=== PATIENT | female | born 1965 | race Two or more races ===

== ENCOUNTER 2016-12-26 12:52 | Emergency (ER) | payer OTHER ==
[~2016-12-26 12:52] MED LIST: FERRATE325 MG PO; LEVOTHYROXIN0.075 MG PO
[2016-12-26 16:15] VITALS: BP 152/78
[2016-12-26 16:19] LABS: UA SPECIFIC GRAVITY 1.025 (1.005-1.035); microscopic required? YES; urine erythrocyte 3+ (NEGATIVE)
== END 2016-12-26 16:16 | disposition home or self-care (01) ==
LOC: ED 12:52
PROVIDERS: Emergency Medicine
DX: N39.0 Urinary tract infection, site not specified (principal); R03.0 Elevated blood-pressure reading, without diagnosis of hypertension

== ENCOUNTER 2017-02-15 21:15 | Emergency (ER) | payer OTHER ==
[2017-02-15 23:20] VITALS: BP 156/74
== END 2017-02-15 23:20 | disposition home or self-care (01) ==
LOC: ED 21:15
DX: I83.91 Asymptomatic varicose veins of right lower extremity (principal); E07.9 Disorder of thyroid, unspecified

== ENCOUNTER 2017-04-17 20:29 | Emergency (ER) | payer OTHER ==
[2017-04-17 23:32] LABS: UA SPECIFIC GRAVITY <=1.005 (1.005-1.035); microscopic required? YES; urine erythrocyte NEGATIVE (NEGATIVE)
[2017-04-18 00:04] VITALS: BP 131/68
== END 2017-04-18 00:04 | disposition home or self-care (01) ==
LOC: ED 20:29
PROVIDERS: Emergency Medicine Emergency Medical Services
DX: N39.0 Urinary tract infection, site not specified (principal); Z79.899 Other long term (current) drug therapy

== ENCOUNTER 2017-09-02 14:32 | Emergency (ER) | payer OTHER ==
[~2017-09-02] VITALS: Ht 157.5 cm; Wt 88.5 kg
[2017-09-02 16:31] VITALS: BP 142/79
[2017-09-02 16:59] LABS: BASOPHIL % 0.4 % (0-2); PLATELET COUNT 240 x10^3mcL (130-400); RED CELL DISTRIBUTION WIDTH 13.7 % (11.5-14.5)
== END 2017-09-02 17:20 | disposition home or self-care (01) ==
LOC: ED 14:32
PROVIDERS: Emergency Medicine
DX: R04.0 Epistaxis (principal); E07.9 Disorder of thyroid, unspecified
CPT/HCPCS: 36415

== ENCOUNTER 2017-09-03 00:21 | Emergency (ER) | payer OTHER ==
[~2017-09-03] VITALS: Ht 162.6 cm; Wt 81.2 kg
[2017-09-03 01:45] VITALS: BP 140/89
== END 2017-09-03 01:46 | disposition home or self-care (01) ==
LOC: ED 00:21
DX: R04.0 Epistaxis (principal)

== ENCOUNTER 2017-09-06 12:46 | Emergency (ER) | payer OTHER ==
[~2017-09-06] VITALS: Ht 162.6 cm; Wt 87.5 kg
[2017-09-06 14:46] VITALS: BP 136/84
== END 2017-09-06 14:46 | disposition home or self-care (01) ==
LOC: ED 12:46
DX: R04.0 Epistaxis (principal)

== ENCOUNTER 2017-09-10 14:50 | Emergency (ER) | payer OTHER ==
[2017-09-10 16:51] VITALS: BP 117/73
== END 2017-09-10 16:51 | disposition home or self-care (01) ==
LOC: ED 14:50
DX: R04.0 Epistaxis (principal)

== ENCOUNTER 2017-12-11 18:46 | Emergency (ER) | payer OTHER ==
[~2017-12-11] VITALS: Ht 162.6 cm; Wt 87.5 kg
[2017-12-11 19:07] VITALS: Ht 162.6 cm; Wt 87.5 kg
[2017-12-11 21:53] VITALS: BP 142/96
== END 2017-12-12 00:29 | disposition home or self-care (01) ==
LOC: ED 18:46
DX: K21.9 Gastro-esophageal reflux disease without esophagitis (principal); E03.9 Hypothyroidism, unspecified; Z86.2 Personal history of diseases of the blood and blood-forming organs and certain disorders involving the immune mechanism
CPT/HCPCS: J0780; J1885

== ENCOUNTER 2018-01-05 11:27 | Emergency (ER) | payer OTHER ==
[~2018-01-05] VITALS: Ht 162.6 cm; Wt 89.8 kg
[2018-01-05 11:49] VITALS: Ht 162.6 cm; Wt 89.8 kg
[2018-01-05 14:31] VITALS: BP 143/77
== END 2018-01-05 15:15 | disposition home or self-care (01) ==
LOC: ED 11:27
DX: R04.0 Epistaxis (principal)

== ENCOUNTER 2018-03-23 17:59 | Emergency (ER) | payer OTHER ==
[~2018-03-23] VITALS: Ht 170.2 cm; Wt 88.9 kg
[2018-03-23 18:10] VITALS: Ht 170.2 cm; Wt 88.9 kg
[2018-03-23 19:47] VITALS: BP 145/89
== END 2018-03-23 19:47 | disposition home or self-care (01) ==
LOC: ED 17:59
DX: M79.631 Pain in right forearm (principal); X58.XXXA Exposure to other specified factors, initial encounter; Y93.89 Activity, other specified; Y92.89 Other specified places as the place of occurrence of the external cause; Y99.8 Other external cause status
CPT/HCPCS: J1885

== ENCOUNTER 2018-04-14 19:46 | Emergency (ER) | payer OTHER ==
[2018-04-14 21:17] VITALS: BP 148/66
== END 2018-04-14 21:17 | disposition home or self-care (01) ==
LOC: ED 19:46
PROC: 3E023NZ Introduction of Analgesics, Hypnotics, Sedatives into Muscle, Percutaneous Approach (ICD-10-PCS; principal; 2018-04-14)
DX: S46.812A Strain of other muscles, fascia and tendons at shoulder and upper arm level, left arm, initial encounter (principal); E03.9 Hypothyroidism, unspecified; D64.9 Anemia, unspecified; X50.0XXA Overexertion from strenuous movement or load, initial encounter; X50.3XXA Overexertion from repetitive movements, initial encounter; Y92.89 Other specified places as the place of occurrence of the external cause
CPT/HCPCS: J1885; Q0092

== ENCOUNTER 2018-09-06 22:37 | Emergency (ER) | payer OTHER ==
[~2018-09-06] VITALS: Ht 162.6 cm; Wt 72.6 kg
[2018-09-06 23:29] LABS: BASOPHIL % 0.2 % (0-2); PLATELET COUNT 242 x10^3mcL (130-400); RED CELL DISTRIBUTION WIDTH 13.9 % (11.5-14.5)
[2018-09-06 23:32] LABS: UA SPECIFIC GRAVITY <=1.005 (1.005-1.035); microscopic required? YES; urine erythrocyte NEGATIVE (NEGATIVE)
[2018-09-06 23:36] LABS: CALCIUM 9.1 mg/dL (8.5-10.1); CARBON DIOXIDE 27.9 mmol/L (21-32); CHLORIDE SERUM 106 mmol/L (98-107); CREATININE SERUM 0.7 mg/dL (0.6-1.0); GFR1 > 60 mL/min; GLUCOSE SERUM 88 mg/dL (74-106); POTASSIUM SERUM 4.3 mmol/L (3.5-5.1); SODIUM SERUM 141 mmol/L (136-145)
[2018-09-06 23:43] LABS: AMPHETAMINE QUAL UR NONE DETECTED (See below)
[2018-09-06 23:46] LABS: ALBUMIN 3.6 g/dL (3.4-5.0); ALKALINE PHOSPHATASE 85 U/L (46-116); ALT/SGPT 27 U/L (14-59); AST/SGOT 24 U/L (15-37); BILIRUBIN TOTAL 0.2 mg/dL (0.20-1.00); FREE T4 1.07 ng/dL (0.76-1.46); TOTAL PROTEIN, SERUM 7.1 g/dL (6.4-8.2)
[2018-09-07 01:46] VITALS: BP 136/93
== END 2018-09-07 01:46 | disposition home or self-care (01) ==
LOC: ED 22:37
PROVIDERS: Emergency Medicine
DX: N39.0 Urinary tract infection, site not specified (principal); E03.9 Hypothyroidism, unspecified; Z86.2 Personal history of diseases of the blood and blood-forming organs and certain disorders involving the immune mechanism
CPT/HCPCS: 36415; 83880; 84439; J8597

== ENCOUNTER 2018-10-29 21:14 | Emergency (ER) | payer OTHER ==
[~2018-10-29] VITALS: Ht 167.6 cm; Wt 106.1 kg
[2018-10-29 21:35] VITALS: Ht 167.6 cm; Wt 106.1 kg
[2018-10-29 23:20] LABS: CARBON DIOXIDE 24.4 mmol/L (21-32); CHLORIDE SERUM 105 mmol/L (98-107); CREATININE SERUM 0.8 mg/dL (0.6-1.0); GFR1 > 60 mL/min; GLUCOSE SERUM 108 mg/dL (74-106); POTASSIUM SERUM 3.6 mmol/L (3.5-5.1); SODIUM SERUM 140 mmol/L (136-145)
[2018-10-29 23:25] LABS: BASOPHIL % 0.4 % (0-2); PLATELET COUNT 248 x10^3mcL (130-400); RED CELL DISTRIBUTION WIDTH 13.8 % (11.5-14.5)
[2018-10-30 00:29] VITALS: BP 134/84
== END 2018-10-30 00:29 | disposition home or self-care (01) ==
LOC: ED 21:14
PROVIDERS: Emergency Medicine
DX: R04.0 Epistaxis (principal); E03.9 Hypothyroidism, unspecified; Z86.2 Personal history of diseases of the blood and blood-forming organs and certain disorders involving the immune mechanism
CPT/HCPCS: 36415

== ENCOUNTER 2019-02-24 16:59 | Emergency (ER) | payer OTHER ==
[~2019-02-24] VITALS: Ht 165.1 cm; Wt 72.6 kg
[2019-02-24 17:02] VITALS: Ht 165.1 cm; Wt 72.6 kg
[2019-02-24 17:51] LABS: BASOPHIL % 1.9 % (0-2); PLATELET COUNT 252 x10^3mcL (130-400)
[2019-02-24 17:57] LABS: CALCIUM 9.1 mg/dL (8.5-10.1); CARBON DIOXIDE 30.6 mmol/L (21-32); CHLORIDE SERUM 107 mmol/L (98-107); CREATININE SERUM 0.7 mg/dL (0.6-1.0); GFR1 > 60 mL/min; GLUCOSE SERUM 100 mg/dL (74-106); POTASSIUM SERUM 3.9 mmol/L (3.5-5.1); SODIUM SERUM 145 mmol/L (136-145)
[2019-02-24 18:02] LABS: ALBUMIN 3.5 g/dL (3.4-5.0); ALKALINE PHOSPHATASE 84 U/L (46-116); ALT/SGPT 24 U/L (14-59); AST/SGOT 20 U/L (15-37); BILIRUBIN TOTAL 0.2 mg/dL (0.20-1.00); LIPASE 162 IU/L (73-393); TOTAL PROTEIN, SERUM 7.3 g/dL (6.4-8.2)
[2019-02-24 20:38] LABS: microscopic required? YES; urine erythrocyte TRACE (NEGATIVE)
[2019-02-24 21:32] VITALS: BP 117/53
== END 2019-02-24 21:19 | disposition home or self-care (01) ==
LOC: ED 16:59
PROVIDERS: Emergency Medicine
DX: R10.13 Epigastric pain (principal); K76.0 Fatty (change of) liver, not elsewhere classified; E03.9 Hypothyroidism, unspecified; Z86.2 Personal history of diseases of the blood and blood-forming organs and certain disorders involving the immune mechanism
CPT/HCPCS: 36415; Q0092

== ENCOUNTER 2019-12-22 08:07 | Emergency (ER) | payer OTHER ==
[~2019-12-22] VITALS: Ht 167.6 cm; Wt 81.2 kg
[2019-12-22 08:15] VITALS: Ht 167.6 cm; Wt 81.2 kg
[2019-12-22 09:48] VITALS: BP 152/84
== END 2019-12-22 09:48 | disposition home or self-care (01) ==
LOC: ED 08:07
DX: R04.0 Epistaxis (principal); I10 Essential (primary) hypertension; E03.9 Hypothyroidism, unspecified

== ENCOUNTER 2020-02-22 13:07 | Emergency (ER) | payer OTHER ==
[~2020-02-22] VITALS: Ht 165.1 cm; Wt 90.3 kg
[2020-02-22 13:19] VITALS: Ht 165.1 cm; Wt 90.3 kg
[2020-02-22 14:34] VITALS: BP 139/90
== END 2020-02-22 14:34 | disposition home or self-care (01) ==
LOC: ED 13:07
DX: M25.511 Pain in right shoulder (principal); E03.9 Hypothyroidism, unspecified
CPT/HCPCS: J1885

== ENCOUNTER 2020-06-28 10:46 | Emergency (ER) | payer OTHER, SELFPAY ==
[~2020-06-28] VITALS: Ht 162.6 cm; Wt 89.8 kg
[2020-06-28 10:48] VITALS: Ht 162.6 cm; Wt 89.8 kg
[2020-06-28 14:07] VITALS: BP 121/73
== END 2020-06-28 14:07 | disposition home or self-care (01) ==
LOC: ED 10:46
DX: U07.1 COVID-19 (principal)
CPT/HCPCS: Q0092; U0003-CS

== ENCOUNTER 2020-11-07 07:55 | Emergency (ER) | payer OTHER ==
[~2020-11-07] VITALS: Ht 167.6 cm; Wt 90.3 kg
[2020-11-07 07:57] VITALS: Ht 167.6 cm; Wt 90.3 kg
[2020-11-07 09:29] LABS: UA SPECIFIC GRAVITY >=1.030 (1.005-1.035); microscopic required? YES; urine erythrocyte TRACE (NEGATIVE)
[2020-11-07 10:59] VITALS: BP 135/73
== END 2020-11-07 10:59 | disposition home or self-care (01) ==
LOC: ED 07:55
PROVIDERS: Emergency Medicine
DX: R07.89 Other chest pain (principal); E03.9 Hypothyroidism, unspecified; Z86.2 Personal history of diseases of the blood and blood-forming organs and certain disorders involving the immune mechanism